=== PATIENT | male | born 1965 | race Caucasian/White ===

== ENCOUNTER 2019-12-28 13:34 | Outpatient (CLI) | payer BC ==
--- NOTE | 2019-12-28 16:29 | MRI ---
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 Encounter for screening for malignant neoplasm site unspecif ied Comparison: None. Findings: Multiplanar multisequence MRI of the abdomen was performed prior to and after the intraveno us administration of contrast. No significant pleural or pericardial effusion. Aortic contour is normal. Background bone marrow sign al is normal. The spleen, adrenal glands, liver, gallbladder are unremarkable. No retroperitoneal periaortic adenop athy. Small sub-5 mm cortical cysts of the right kidney. No significant hepatic steatosis. No abnormal enhancing hepatic mass. No abnormal enhancing pancreati c mass. Mild degenerative narrowing and enhancement between the L3 and L4 spinous processes as well as L4/L5 facet joints. No hydronephrosis or abnormal enhancing renal mass. Impression: Normal abdomen MRI.
== END 2019-12-28 13:35 | disposition home or self-care (01) ==
LOC: SCSMRI 13:34
PROVIDERS: ATTEND Internal Medicine Gastroenterology
DX: Z12.9 Encounter for screening for malignant neoplasm, site unspecified (principal); R89.8 Other abnormal findings in specimens from other organs, systems and tissues
CPT/HCPCS: 74183; 82565